=== PATIENT | female | born 1985 | race Caucasian/White ===

== ENCOUNTER 2019-06-24 05:30 | Inpatient (IN) | payer OTHER ==
[2019-06-24] MEDS: Lactated Ringer's 1,000 ML IV SCH ×3 (06:35→11:43)
[2019-06-24 06:44] VITALS: BMI 30.7
[2019-06-24] MEDS ORDERED: NS / Oxytocin 40 units/1000ml 1,000 ML IV PRN (07:00)
[2019-06-24] MEDS ORDERED: Ondansetron PF 4 MG/2 ML Vial IVP PRN ×2 (07:00→14:53)
[2019-06-24] MEDS ORDERED: hydrALAZINE 20 MG/ML VIAL SLOW IVP PRN ×2 (07:00→14:53)
[2019-06-24] MEDS ORDERED: HYDROcodone/Acetaminophen 5/325 mg Tablet PO PRN ×3 (07:00→14:53)
[2019-06-24] MEDS ORDERED: NS w/ Oxytocin 10 units 500 ML IV SCH ×2 (07:00)
[2019-06-24] MEDS ORDERED: Lidocaine 1% (PF) 30 ML VIAL SC PRN (07:00)
[2019-06-24] MEDS ORDERED: Ibuprofen 800 MG TAB PO PRN (07:00)
[2019-06-24] MEDS ORDERED: Butorphanol Tartrate 1 MG/ML VIAL SLOW IVP PRN (07:00)
[2019-06-24] MEDS ORDERED: Promethazine HCl 25 MG/ML VIAL IM PRN ×2 (07:00→14:53)
[2019-06-24 07:19] LABS: Hemoglobin 13.2 g/dL (12.0-16.0); Mean Corpuscular HGB CONC 35.1 g/dL (32.0-36.0); Mean Corpuscular Hemoglobin 31.4 pg (27.0-31.0); Mean Corpuscular Volume 89.5 fL (78.0-98.0); Mean Platelet Volume 8.1 fL (7.4-10.4); Platelet Count 180 thou/uL (130-400); RBC Distribution Width 13.5 % (11.5-14.5); Red Blood Cell (RBC) Count 4.22 mill/uL (4.20-5.40); White Blood Cell (WBC) Count 9.1 thou/uL (4.8-10.8)
[2019-06-24 07:31] LABS: ALT (SGPT) 8 U/L (8-55); AST (SGOT) 11 U/L (5-34); Albumin 3.4 g/dL (3.5-5.0); Alkaline Phosphatase 145 U/L (40-110); Anion Gap 13 mmol/L (10-20); BUN (Urea Nitrogen) 9 mg/dL (7.0-18.7); Bilirubin, Total 0.2 mg/dL (0.2-1.2); Calc. Creatinine Clearance 178 mL/min (70-130); Carbon Dioxide 21 mmol/L (22-29); Chloride 108 mmol/L (98-107); Estimated GFR-MDRD Greater than 90; Globulin 2.3 g/dL (2.4-3.5); Glucose 104 mg/dL (70-105); Potassium 3.7 mmol/L (3.5-5.1); Protein, Total 5.7 g/dL (6.0-8.3); Sodium 138 mmol/L (136-145)
[2019-06-24 07:50] LABS: HBSAg Index 0.16 S/CO (0-0.99); Hep B Surf Ag Non-Reactive S/CO (NonReactive); Syphilis Antibody Nonreactive (Nonreactive); Syphilis Antibody Index 0.06 S/CO (<1.00 Non-Reactive)
[2019-06-24] MEDS ORDERED: ePHEDrine/0.9% NaCl/PF SYRINGE 50 mg/10 ml ONE (08:55)
[2019-06-24] MEDS ORDERED: Lidocaine 2% MPF 10 ML AMP (For Epidural Use) ONE (08:55)
[2019-06-24] MEDS ORDERED: Fentanyl 4 mcg/Bup 0.1% Cadd 100 ML ONE (09:30)
[2019-06-24] MEDS ORDERED: Fentanyl 100 MCG/2 ML VIAL ONE (11:12)
--- NOTE | 2019-06-24 13:02 | PDOC.LDPN ---
Labor & Delivery Progress Note - Subjective Subjective: comfortable - Objective Vital signs reviewed and normal: yes General: resting Dilation: 6 Effacement: 75% Station: -1 FHT: category 1 - Assessment (1) Gestational hypertension Code(s): O13.9 - GESTATIONAL HTN W/O SIGNIFICANT PROTEINURIA, UNSP TRIMESTER Current Visit: No Status: Acute Plan: continue plan of care
--- NOTE | 2019-06-24 13:41 | PDOC.OPDEL ---
OB Operative/Delivery Note Delivery Dr/Surgeon: Taras Pre-Delivery Diagnosis: medically indicated induction Procedure/Post Delivery Dx: spontaneous vaginal delivery Weeks gestation: 37 Anesthesia: epidural - Findings A Sex: female Weight: 8 lb 2 oz - Additional Findings/Plan Placenta delivered: spontaneous Repaired Obstetrical Laceration: 1st degree Estimated blood loss: <200ml Post delivery plan: routine recovery
[2019-06-24] MEDS ORDERED: Preparation H Ointment 28 GM TUBE PR PRN (14:53)
[2019-06-24] MEDS ORDERED: NS / Oxytocin 40 units/1000ml 1,000 ML IV SCH (14:53)
[2019-06-24] MEDS ORDERED: Bisacodyl 10 MG SUPP PR PRN (14:53)
[2019-06-24] MEDS ORDERED: Milk Of Magnesia 30 ML UDCUP PO PRN (14:53)
[2019-06-24] MEDS ORDERED: Lanolin Ointment 7 GM TUBE TOP PRN (14:53)
[2019-06-24] MEDS ORDERED: Benzocaine-Menthol 82.5 ML CAN TOP PRN (14:53)
[2019-06-24] MEDS ORDERED: diphenhydrAMINE 25 MG CAP PO PRN (14:53)
[2019-06-24] MEDS: HYDROcodone/Acetaminophen 5/325 mg Tablet PO PRN (18:16)
[2019-06-24] MEDS: Ibuprofen 800 MG TAB PO SCH ×2 (19:15→21:18)
[2019-06-24] MEDS: Ferrous Sulfate 325 MG TAB PO SCH (19:18)
[2019-06-24] MEDS: Docusate Calcium (SURFAK) 240 MG CAP PO SCH (21:18)
[2019-06-25] MEDS: HYDROcodone/Acetaminophen 5/325 mg Tablet PO PRN ×2 (00:49→09:50)
[2019-06-25] MEDS: Ibuprofen 800 MG TAB PO SCH ×3 (05:45→21:01)
[2019-06-25] MEDS: Ferrous Sulfate 325 MG TAB PO SCH ×2 (07:46→15:26)
[2019-06-25] MEDS ORDERED: Adacel (T-DAP) 0.5 ML SYRINGE IM ONE (09:00)
[2019-06-25] MEDS: Docusate Calcium (SURFAK) 240 MG CAP PO SCH ×2 (09:49→21:01)
[2019-06-25] MEDS: Prenatal Vitamin 1 TAB PO SCH (09:49)
--- NOTE | 2019-06-25 10:46 | PDOC.PP ---
Post Progress Note Post Day #: 1 Subjective: No concerns, does not want to go home today. PO intake tolerated: yes Flatus: yes Ambulation: yes Vital Signs (12 hours) Temp Pulse Resp BP Pulse Ox 06/25/19 08:40 98.3 F 86 16 125/75 98 06/25/19 04:04 98.2 F 71 18 117/68 06/25/19 00:42 97.5 F L 69 18 116/67 Weight Weight 220 lb - Physical Examination General: NAD Respiratory: non-labored breathing Abdominal: appropriately TTP Fundus firm & at: below umb Skin: no rash Neurological: no gross focal deficits Psychiatric: A&Ox3, normal affect Result Diagrams: 06/24/19 06:55 06/24/19 06:55 Additional Labs: Post Labs Blood Type A POSITIVE 06/24/19 06:55 Hep Bs Antigen Non-Reactive S/CO (NonReactive) 06/24/19 06:55 (1) Gestational hypertension Code(s): O13.9 - GESTATIONAL HTN W/O SIGNIFICANT PROTEINURIA, UNSP TRIMESTER Status: Acute - Assessment/Plan PPD1 doing well, plans to go home tomorrow.
[2019-06-26] MEDS: Ibuprofen 800 MG TAB PO SCH ×2 (05:22→14:29)
[2019-06-26] MEDS: HYDROcodone/Acetaminophen 5/325 mg Tablet PO PRN (05:24)
[2019-06-26 07:57] VITALS: TEMP 98.5
--- NOTE | 2019-06-26 08:40 | PDOC.PP ---
Post Progress Note Post Day #: 2 PO intake tolerated: yes Flatus: yes Ambulation: yes Vital Signs (12 hours) Temp Pulse Resp BP Pulse Ox 06/26/19 07:56 98.5 F 75 20 109/75 99 06/26/19 03:50 98.3 F 77 18 145/83 H 06/26/19 01:03 98.1 F 63 18 129/74 Weight Weight 220 lb - Physical Examination General: NAD Respiratory: non-labored breathing Abdominal: no distention, appropriately TTP Fundus firm & at: umb Skin: no rash Neurological: no gross focal deficits Psychiatric: normal affect Result Diagrams: 06/24/19 06:55 06/24/19 06:55 Additional Labs: Post Labs Blood Type A POSITIVE 06/24/19 06:55 Hep Bs Antigen Non-Reactive S/CO (NonReactive) 06/24/19 06:55 - Assessment/Plan PPD2 s/p TSVD VSSAF PIH- BP mild x 2, no sx PIH, labs wnl, FU in office for BP check in 1 wk, PIH warnings. Doing well lochia < menses Rh pos RImm DC home FU 1 wk
[2019-06-26] MEDS: Ferrous Sulfate 325 MG TAB PO SCH (09:36)
[2019-06-26] MEDS: Prenatal Vitamin 1 TAB PO SCH (09:37)
[2019-06-26] MEDS: Docusate Calcium (SURFAK) 240 MG CAP PO SCH (09:37)
[2019-06-26 11:33] VITALS: BP 109/56
== END 2019-06-26 16:00 | disposition home or self-care (01) | DRG 807 ==
LOC: L&D 05:58 → 3SW 16:25
PROVIDERS: ADMIT Obstetrics & Gynecology; ATTEND Obstetrics & Gynecology
PROC: 10E0XZZ Delivery of Products of Conception, External Approach (ICD-10-PCS; principal; 2019-06-24)
PROC: 0HQ9XZZ Repair Perineum Skin, External Approach (ICD-10-PCS; 2019-06-24)
DX: O13.4 Gestational [pregnancy-induced] hypertension without significant proteinuria, complicating childbirth (principal); Z37.0 Single live birth; Z3A.37 37 weeks gestation of pregnancy; O70.0 First degree perineal laceration during delivery
CPT/HCPCS: 51702; 80053; 85027; 86780; 86850; 86900; 86901; 87340; J2001; J2590; J3010